=== PATIENT | female | born 1995 | race Caucasian/White ===

== ENCOUNTER 2017-08-05 06:25 | Day surgery (SDC) | payer OTHER ==
[2017-08-04 16:21] VITALS: BMI 19.7
[2017-08-05] MEDS ORDERED: Midazolam HCl 2 mg/2 ml Vial ONE (08:05)
[2017-08-05] MEDS ORDERED: Scopolamine 1.5 mg/72 hour Patch ONE (08:06)
[2017-08-05] MEDS ORDERED: Fentanyl 250 MCG/5 ML VIAL ONE (08:49)
[2017-08-05] MEDS ORDERED: methylPREDNISolone Acetate 40 mg/ml Vial ONE (09:24)
[2017-08-05] MEDS ORDERED: Hydrocodone-Acetamin 15 ML UDCUP ONE (10:50)
--- NOTE | 2017-08-05 12:33 | OP ---
PREOPERATIVE DIAGNOSES: 1. Chronic adenotonsillitis. 2. Adenotonsillar hypertrophy. POSTOPERATIVE DIAGNOSES: 1. Chronic adenotonsillitis. 2. Adenotonsillar hypertrophy. PROCEDURE: Tonsillectomy and adenoidectomy. SURGEON: Adiel Alexis M.D. ESTIMATED BLOOD LOSS: 0 mL. COMPLICATIONS: None. ANESTHESIA: GETA. PROCEDURE IN DETAIL: After consent was obtained, the patient was identified, brought to the operating room, and placed on the operating table in the supine position. General endotracheal anesthesia and intravenous access was obtained and we proceeded with positioning the patient for oropharyngeal surge ry. Oropharyngeal exposure was obtained with a Gladys-Ramo mouth gag after a head drape was placed an d secured with a towel clip. The Gladys-Ramo mouth gag was then suspended from the Mast tray and poarch amy elevation was achieved with a red rubber catheter. The right tonsil was addressed first. We used a curved Allis to grasp the tonsil and retract it medially as an anterior pillar incision was made. The retrotonsillar fascial plane was then established and blunt dissection was performed with the suc tion cautery. Blood vessels were anticipated, identified, and cauterized as they were encountered. Ul timately, dissection was carried to the posterior tonsillar pillar mucosa which was incised hemostati koko, as well as the base of tongue connection. The tonsil was then passed off as a specimen and ble eding points within the tonsillar bed were cauterized under direct visualization. We subsequently tur glenis our attention to the contralateral side, where using a similar technique, a near identical proced ure was performed. Again, the tonsil was grasped and retracted medially with a curved Allis. The retr otonsillar fascial plane was established and while the anterior pillar was retracted medially, the he mostatic blunt dissection of the tonsil with a suction cautery was performed with blood vessels antic ipated, identified, and cauterized as they were encountered. Again, dissection continued to the base of tongue and posterior tonsillar pillar mucosa which was incised in a hemostatic fashion. The tonsil lar beds were then carefully inspected and bleeding points were identified and cauterized with a suct ion cautery. After this portion of the procedure, hemostasis was completely obtained. Under direct mi rror visualization, we visualized the adenoid pad. Under direct mirror visualization, we removed the bulk of the adenoid tissue with the adenoid curette. We then packed the nasopharynx for an appropriat e period of time with Ravi-Synephrine saturated tonsillar sponges. After a period of observation, we r emoved the pack. Under indirect mirror visualization, we obtained hemostasis and vaporization of resi dual adenoid tissue with electrocautery. The patient's oral cavity was copiously irrigated with iced saline and subsequently suctioned. After completion of the procedure, the nasal cavity and oropharynx were irrigated and suctioned as were the gastric contents. The patient was then awakened and transfe rred to the recovery room where the patient remained in stable condition prior to discharge to [facility]
== END 2017-08-05 11:35 | disposition home or self-care (01) ==
LOC: SDC 06:25
PROVIDERS: ATTEND Otolaryngology Plastic Surgery within the Head & Neck
PROC: 0C5PXZZ Destruction of Tonsils, External Approach (ICD-10-PCS; principal; 2017-08-05)
PROC: 0C5QXZZ Destruction of Adenoids, External Approach (ICD-10-PCS; principal; 2017-08-05)
DX: J35.03 Chronic tonsillitis and adenoiditis (principal); Z79.899 Other long term (current) drug therapy; Z79.2 Long term (current) use of antibiotics
CPT/HCPCS: 36415; 85014; 88304; J1030; J2250; J3010